=== PATIENT | female | born 1940 | race Caucasian/White ===

== ENCOUNTER 2016-06-16 11:23 | Day surgery (SDC) | payer MEDICARE, BC ==
[~2016-06-16] VITALS: Ht 157.5 cm; Wt 69.8 kg
[~2016-06-16 11:23] MED LIST: NO HOME MEDICATIONS; ZITHROMAX 250M250 MG PO
[2016-06-16 12:46] VITALS: BP 124/63; PULSE 78; TEMP 97.3
[2016-06-16] MEDS ORDERED: [UNRECOGNIZED DRUG - REMARK] (12:46)
[2016-06-16 13:25] VITALS: BP 136/67; PULSE 86; TEMP 97.8
[2016-06-16 13:40] VITALS: BP 124/52; PULSE 77
[2016-06-16 13:55] VITALS: BP 124/52; PULSE 98
[2016-06-16 14:10] VITALS: BP 130/64; PULSE 103
[2016-06-16 14:30] VITALS: BP 120/49; PULSE 105
== END 2016-06-16 14:45 | disposition home or self-care (01) ==
LOC: SDCO 11:23
DX: R05 Cough (principal); J47.9 Bronchiectasis, uncomplicated; R09.89 Other specified symptoms and signs involving the circulatory and respiratory systems
CPT/HCPCS: J1956; J2704; J2920; J7030